=== PATIENT | female | born 1965 | race Two or more races ===

== ENCOUNTER 2018-12-04 12:18 | Outpatient (CLI) | payer OTHER | END 2018-12-04 12:25 | disposition home or self-care (01) | LOC: RAD 12:18 → LAB 12:18 | DX: N30.00 Acute cystitis without hematuria (principal); K57.20 Diverticulitis of large intestine with perforation and abscess without bleeding; R10.32 Left lower quadrant pain; N32.1 Vesicointestinal fistula; B96.29 Other Escherichia coli [E. coli] as the cause of diseases classified elsewhere; Z01.810 Encounter for preprocedural cardiovascular examination; Z01.812 Encounter for preprocedural laboratory examination ==

== ENCOUNTER 2018-12-04 14:00 | Inpatient (IN) | payer OTHER ==
[~2018-12-04] VITALS: Ht 152.4 cm; Wt 5.0 kg
[2018-12-18] MEDS ORDERED: PERCOCET 5-3251 EACH PO (11:00)
[2018-12-18] MEDS ORDERED: OMEPRAZOLE20 MG PO (11:00)
== END 2018-12-18 13:51 | disposition home or self-care (01) | DRG 330 ==
LOC: EDUNIT# 14:00 → SEC-K 12-10 12:25 → SURG 12-10 12:25 → RECOVERY 12-11 14:00 → SURG 12-18 13:51
PROVIDERS: ADMIT Surgery
PROC: 0T788DZ Dilation of Bilateral Ureters with Intraluminal Device, Via Natural or Artificial Opening Endoscopic (ICD-10-PCS; principal; 2018-12-10)
PROC: 0DQB4ZZ Repair Ileum, Percutaneous Endoscopic Approach (ICD-10-PCS; 2018-12-11)
DX: K57.32 Diverticulitis of large intestine without perforation or abscess without bleeding (principal); N32.1 Vesicointestinal fistula; N39.0 Urinary tract infection, site not specified; E87.6 Hypokalemia; I11.9 Hypertensive heart disease without heart failure; I10 Essential (primary) hypertension; E86.0 Dehydration; R10.2 Pelvic and perineal pain; Z88.0 Allergy status to penicillin

== ENCOUNTER 2018-12-10 07:23 | Outpatient (CLI) | payer OTHER | END 2018-12-10 07:30 | disposition home or self-care (01) | LOC: LAB 07:23 | DX: D68.8 Other specified coagulation defects (principal); E87.6 Hypokalemia; E83.42 Hypomagnesemia ==

== ENCOUNTER 2018-12-28 00:10 | Inpatient (IN) | payer OTHER ==
[~2018-12-28] VITALS: Ht 165.1 cm; Wt 65.8 kg
[~2018-12-28 00:10] MED LIST: OMEPRAZOLE20 MG PO; PERCOCET 5-3251 EACH PO
[2018-12-28] MEDS ORDERED: METOPROLOL SUCC25 MG (00:16)
[2018-12-28] MEDS ORDERED: NORVASC5 MG (00:17)
[2018-12-28] MEDS ORDERED: CLONAZEPAM0.5 M1 (00:17)
--- NOTE | 2018-12-28 00:17 | NUR ---
SE RECIBE PTE ALERTA Y ORIENTADA EN LAS 3 ESFERAS EN AMBULANCIA EN COMPANIA DE PARAMEDICOS. PTE INDICA QUE RODRIGUEZ COLOSTOMIA NO ESTA FUNCIONANDO YA QUE ESTA DRENANDO "LIQUIDO COLOR RENATO".
--- NOTE | 2018-12-28 01:02 | NUR ---
SE ORIENTA A PTE SOBRE ESTUDIO CI ABDOMEN/PELVICO PO. PTE REHUSA REALIZARSE CT SCAN PORQUE INDICA QUE TIENE MIEDO DE REALIZARSE PORQUE "YA HE DRENANDO BASTANTE POR LA COLOSTOMIA Y TENGO MIEDO A VACIARME MAS" SE RE-ORIENTA A PTE SOBRE IMPORTANCIA DEL ESTUDIO. PTE INDICA COMPRENDER MAJO CONTINUA REHUSANDO REALIZARSE EL CT.
--- NOTE | 2018-12-28 01:36 | NUR ---
EVALUA PTE. SE ORIENTA A PTE SOBRE TX MEDICO. PTE REFIERE COMPRENDER. SE REALIZAN MUESTRAS DE LABORATORIO BAJO MEDIDAS ASEPTICAS. SE ADMINISTRAN MEDICAMENTOS NANDINI ORDEN MEDICA. PROCEDIMIENTOS LLEVADOS A CABO POR .
--- NOTE | 2018-12-28 07:12 | NUR ---
SE RECIBE PTE FEMENINA DE 53 YRS ALERTA CONCIENTE Y TRANQUILA EN BEN CON BARANDAS ELEVADA. PTE CON IVF PATENTE Y MICHAEL DE EDEMA SE MANTEIENE BAJO OBSERVACION POR CAMBIOS EN RODRIGUEZ CONDICON.
[2019-01-02] MEDS ORDERED: CHOLESTYRAMINE P4 GM PO (13:26)
[2019-01-02] MEDS ORDERED: PRE PROTEIN 2030 ML PO (13:26)
[2019-01-02] MEDS ORDERED: FAMOTIDINE20 MG PO (13:26)
[2019-01-02] MEDS ORDERED: CLONAZEPAM1 MG PO (13:26)
[2019-01-02] MEDS ORDERED: TOPROL XL100 M1 PO (13:26)
[2019-01-02] MEDS ORDERED: IMODIUM A-D2 M2 PO (13:26)
== END 2019-01-02 17:19 | disposition home or self-care (01) | DRG 641 ==
LOC: ER 00:10 → SEC-K 14:15 → SURH 16:17 → SURG 12-31 14:59
PROVIDERS: ADMIT Internal Medicine Geriatric Medicine
DX: E87.6 Hypokalemia (principal); K94.09 Other complications of colostomy; K57.32 Diverticulitis of large intestine without perforation or abscess without bleeding; N32.1 Vesicointestinal fistula; N39.0 Urinary tract infection, site not specified; E86.0 Dehydration; I11.0 Hypertensive heart disease with heart failure; F41.1 Generalized anxiety disorder; E11.9 Type 2 diabetes mellitus without complications; Z79.4 Long term (current) use of insulin; E88.09 Other disorders of plasma-protein metabolism, not elsewhere classified; Z63.4 Disappearance and death of family member

== ENCOUNTER 2019-01-09 13:40 | Inpatient (IN) | payer OTHER ==
[~2019-01-09] VITALS: Ht 165.1 cm; Wt 63.5 kg
[~2019-01-09 13:40] MED LIST changes: +CHOLESTYRAMINE P4 GM PO; +CLONAZEPAM0.5 M1; +CLONAZEPAM1 MG PO; +FAMOTIDINE20 MG PO; +IMODIUM A-D2 M2 PO; +METOPROLOL SUCC25 MG; +NORVASC5 MG; +PRE PROTEIN 2030 ML PO; +TOPROL XL100 M1 PO
[2019-02-22] MEDS ORDERED: Intestinex CAP PO (13:22)
[2019-02-22] MEDS ORDERED: Neurin-Sl Tablet Sl SL (13:22)
[2019-02-22] MEDS ORDERED: FAMOTIDINE20 MG PO (13:22)
[2019-02-22] MEDS ORDERED: OYSTER SHELL C500 M1 PO (13:22)
[2019-02-22] MEDS ORDERED: PAROXETINE HCL20 MG PO (13:22)
[2019-02-22] MEDS ORDERED: HYOSCYAMINE0.125 M1 SL (13:22)
[2019-02-22] MEDS ORDERED: NEURONTIN300 MG PO (13:22)
[2019-02-22] MEDS ORDERED: AMLODIPINE BESYL5 MG PO (13:22)
[2019-02-22] MEDS ORDERED: ULTRACET PO (13:22)
[2019-02-22] MEDS ORDERED: CLONAZEPAM0.5 MG PO (13:22)
[2019-02-22] MEDS ORDERED: TOPROL XL100 M1 PO (13:22)
[2019-02-22] MEDS ORDERED: PRE PROTEIN 2030 ML PO (13:22)
== END 2019-02-22 16:50 | DRG 570 ==
LOC: ER 13:40 → MEDJ 22:04 → SEC-K 22:04 → MEDJ 01-10 01:26
PROVIDERS: Surgery; ADMIT Internal Medicine Geriatric Medicine
PROC: BW21ZZZ Computerized Tomography (CT Scan) of Abdomen and Pelvis (ICD-10-PCS; 2019-01-10)
PROC: 02HV33Z Insertion of Infusion Device into Superior Vena Cava, Percutaneous Approach (ICD-10-PCS; 2019-01-10)
PROC: 3E0336Z Introduction of Nutritional Substance into Peripheral Vein, Percutaneous Approach (ICD-10-PCS; 2019-01-10)
PROC: BW40ZZZ Ultrasonography of Abdomen (ICD-10-PCS; 2019-01-11)
PROC: 8E0ZXY6 Isolation (ICD-10-PCS; 2019-01-14)
PROC: 0JB80ZZ Excision of Abdomen Subcutaneous Tissue and Fascia, Open Approach (ICD-10-PCS; 2019-01-15)
PROC: 0W9F0ZZ Drainage of Abdominal Wall, Open Approach (ICD-10-PCS; principal; 2019-01-15 18:15)
PROC: BW28ZZZ Computerized Tomography (CT Scan) of Head (ICD-10-PCS; 2019-01-21)
PROC: B54MZZZ Ultrasonography of Right Upper Extremity Veins (ICD-10-PCS; 2019-01-22)
PROC: B246ZZZ Ultrasonography of Right and Left Heart (ICD-10-PCS; 2019-01-22)
PROC: B030ZZZ Magnetic Resonance Imaging (MRI) of Brain (ICD-10-PCS; 2019-01-22)
PROC: B54MZZZ Ultrasonography of Right Upper Extremity Veins (ICD-10-PCS; 2019-01-29)
PROC: 30233N1 Transfusion of Nonautologous Red Blood Cells into Peripheral Vein, Percutaneous Approach (ICD-10-PCS; 2019-01-30)
PROC: 4A12X4Z Monitoring of Cardiac Electrical Activity, External Approach (ICD-10-PCS; 2019-02-08)
PROC: 0DBN0ZZ Excision of Sigmoid Colon, Open Approach (ICD-10-PCS; 2019-02-12)
PROC: 0DNN0ZZ Release Sigmoid Colon, Open Approach (ICD-10-PCS; 2019-02-12)
PROC: 0DQB0ZZ Repair Ileum, Open Approach (ICD-10-PCS; 2019-02-12)
PROC: 0T788DZ Dilation of Bilateral Ureters with Intraluminal Device, Via Natural or Artificial Opening Endoscopic (ICD-10-PCS; 2019-02-12)
PROC: 0TN78ZZ Release Left Ureter, Via Natural or Artificial Opening Endoscopic (ICD-10-PCS; 2019-02-12)
DX: L03.311 Cellulitis of abdominal wall (principal); I67.83 Posterior reversible encephalopathy syndrome; K57.20 Diverticulitis of large intestine with perforation and abscess without bleeding; K94.13 Enterostomy malfunction; F23 Brief psychotic disorder; E87.1 Hypo-osmolality and hyponatremia; I82.621 Acute embolism and thrombosis of deep veins of right upper extremity; E46 Unspecified protein-calorie malnutrition; N17.8 Other acute kidney failure; E87.2 Acidosis; N82.3 Fistula of vagina to large intestine; K94.03 Colostomy malfunction; B37.49 Other urogenital candidiasis; I11.9 Hypertensive heart disease without heart failure; E87.6 Hypokalemia; F41.8 Other specified anxiety disorders; E88.09 Other disorders of plasma-protein metabolism, not elsewhere classified; F43.12 Post-traumatic stress disorder, chronic; E86.0 Dehydration; E53.8 Deficiency of other specified B group vitamins; N13.5 Crossing vessel and stricture of ureter without hydronephrosis; Z63.4 Disappearance and death of family member; D52.8 Other folate deficiency anemias; B96.89 Other specified bacterial agents as the cause of diseases classified elsewhere; B95.2 Enterococcus as the cause of diseases classified elsewhere; B37.2 Candidiasis of skin and nail
CPT/HCPCS: 70553

== ENCOUNTER 2020-06-08 06:22 | Day surgery (SDC) | payer OTHER ==
[~2020-06-08 06:22] MED LIST changes: +AMLODIPINE BESYL5 MG PO; +CLONAZEPAM0.5 MG PO; +HYOSCYAMINE0.125 M1 SL; +Intestinex CAP PO; +NEURONTIN300 MG PO; +Neurin-Sl Tablet Sl SL; +OYSTER SHELL C500 M1 PO; +PAROXETINE HCL20 MG PO; +ULTRACET PO
== END 2020-06-08 11:45 | disposition home or self-care (01) ==
LOC: AMB-ENDOS 06:22 → ADM 12:00 → AMB-ENDOS 12:00
PROVIDERS: ATTEND Surgery
DX: K62.89 Other specified diseases of anus and rectum (principal)

== ENCOUNTER 2021-08-27 11:52 | Emergency (ER) | payer OTHER ==
[~2021-08-27] VITALS: Ht 162.6 cm; Wt 90.7 kg
[2021-08-27] MEDS ORDERED: METFORMIN HCL500 MG (12:15)
== END 2021-08-27 16:02 | disposition home or self-care (01) ==
LOC: ER 11:52
DX: L03.311 Cellulitis of abdominal wall (principal)

== ENCOUNTER 2021-09-09 12:44 | Inpatient (IN) | payer OTHER ==
[~2021-09-09] VITALS: Ht 162.6 cm; Wt 90.7 kg
[~2021-09-09 12:44] MED LIST changes: +METFORMIN HCL500 MG
[2021-09-10] MEDS ORDERED: ACETAMINOPHEN1 EACH (15:58)
[2021-09-10] MEDS ORDERED: EYE DROPS15 ML (15:58)
[2021-09-10] MEDS ORDERED: BUSPIRONE HCL15 MG (15:58)
[2021-09-10] MEDS ORDERED: URINARY PAIN RE95 MG (15:58)
[2021-09-10] MEDS ORDERED: METFORMIN HCL500 M4 (15:59)
[2021-09-10] MEDS ORDERED: A/F PAIN RELIE500 MG (15:59)
[2021-09-10] MEDS ORDERED: ADVIL200 M1 (15:59)
[2021-09-10] MEDS ORDERED: ADVIL PM CAPLE1 EACH (15:59)
[2021-09-10] MEDS ORDERED: AMLODIPINE BESYL5 MG (15:59)
[2021-09-10] MEDS ORDERED: LOSARTAN POTAS100 MG (15:59)
[2021-09-10] MEDS ORDERED: VENLAFAXINE HCL75 M1 (16:00)
[2021-09-17] MEDS ORDERED: INTESTINEX680 M1 PO (13:31)
[2021-09-17] MEDS ORDERED: DIPHENHIST25 MG PO (13:31)
[2021-09-17] MEDS ORDERED: LOSARTAN POTASS50 MG PO (13:31)
[2021-09-17] MEDS ORDERED: PROTEINEX-18 LI30 ML PO (13:31)
[2021-09-17] MEDS ORDERED: FAMOTIDINE20 MG PO (13:31)
[2021-09-17] MEDS ORDERED: MONTELUKAST SOD10 MG PO (13:31)
[2021-09-17] MEDS ORDERED: levaquin PO (13:31)
[2021-09-17] MEDS ORDERED: FLAGYL500MG PO (13:31)
[2021-09-17] MEDS ORDERED: METFORMIN HCL500 MG PO (13:31)
== END 2021-09-17 17:33 | disposition home or self-care (01) | DRG 603 ==
LOC: ER 12:44 → SEC-K 09-10 12:14 → SURH 09-10 12:14
PROVIDERS: Surgery; ADMIT Internal Medicine Geriatric Medicine; ATTEND Internal Medicine Geriatric Medicine
PROC: BW2110Z Computerized Tomography (CT Scan) of Abdomen and Pelvis using Low Osmolar Contrast, Unenhanced and Enhanced (ICD-10-PCS; 2021-09-10)
PROC: 02H633Z Insertion of Infusion Device into Right Atrium, Percutaneous Approach (ICD-10-PCS; 2021-09-10)
PROC: 0J9800Z Drainage of Abdomen Subcutaneous Tissue and Fascia with Drainage Device, Open Approach (ICD-10-PCS; principal; 2021-09-14 14:00)
PROC: 3E0F7GC Introduction of Other Therapeutic Substance into Respiratory Tract, Via Natural or Artificial Opening (ICD-10-PCS; 2021-09-15)
DX: L02.211 Cutaneous abscess of abdominal wall (principal); K59.00 Constipation, unspecified; L03.311 Cellulitis of abdominal wall; I11.9 Hypertensive heart disease without heart failure; E11.9 Type 2 diabetes mellitus without complications; F41.9 Anxiety disorder, unspecified; J98.01 Acute bronchospasm; Z20.822 Contact with and (suspected) exposure to COVID-19; Z79.4 Long term (current) use of insulin

== ENCOUNTER 2023-01-19 16:03 | Inpatient (IN) | payer OTHER ==
[~2023-01-19] VITALS: Ht 160 cm; Wt 92.1 kg
[~2023-01-19 16:03] MED LIST changes: +A/F PAIN RELIE500 MG; +ACETAMINOPHEN1 EACH; +ADVIL PM CAPLE1 EACH; +ADVIL200 M1; +AMLODIPINE BESYL5 MG; +BUSPIRONE HCL15 MG; +DIPHENHIST25 MG PO; +EYE DROPS15 ML; +FLAGYL500MG PO; +INTESTINEX680 M1 PO; +LOSARTAN POTAS100 MG; +LOSARTAN POTASS50 MG PO; +METFORMIN HCL500 M4; +METFORMIN HCL500 MG PO; +MONTELUKAST SOD10 MG PO; +PROTEINEX-18 LI30 ML PO; +URINARY PAIN RE95 MG; +VENLAFAXINE HCL75 M1; +levaquin PO
[2023-01-19] MEDS ORDERED: CLONAZEPAM2 MG (16:12)
[2023-01-19] MEDS ORDERED: TOPROL XL25 M1 (16:12)
--- NOTE | 2023-01-19 16:17 | NUR ---
PTE ALERTA Y ORIENTADA POR BEA ESFERAS CON BUEN PATRON RESPIRATORIO, REFIERE QUE TIENE ABCESSO EN DONDE ESTABA LA ILESTOMIA DE TIARA HACE 4 ANOS ATRAS. PTE ES DE .
[2023-01-24] MEDS ORDERED: CIPRO500 MG PO (15:10)
== END 2023-01-24 20:36 | DRG 603 ==
LOC: ER 16:03 → SURG 17:05 → SURH 01-22 11:37
PROVIDERS: ADMIT Surgery; ATTEND Surgery
PROC: BW20ZZZ Computerized Tomography (CT Scan) of Abdomen (ICD-10-PCS; 2023-01-19)
PROC: 0HD7XZZ Extraction of Abdomen Skin, External Approach (ICD-10-PCS; 2023-01-20)
PROC: 0W9F4ZZ Drainage of Abdominal Wall, Percutaneous Endoscopic Approach (ICD-10-PCS; principal; 2023-01-20 13:30)
DX: L02.211 Cutaneous abscess of abdominal wall (principal); L03.311 Cellulitis of abdominal wall; B96.20 Unspecified Escherichia coli [E. coli] as the cause of diseases classified elsewhere; E11.9 Type 2 diabetes mellitus without complications; Z79.4 Long term (current) use of insulin; I11.9 Hypertensive heart disease without heart failure; E66.9 Obesity, unspecified; Z68.36 Body mass index [BMI] 36.0-36.9, adult